=== PATIENT | male | born 1980 | race Caucasian/White ===

== ENCOUNTER 2021-12-24 10:35 | Emergency (ER) | payer OTHER ==
[~2021-12-24] VITALS: Ht 170.2 cm; Wt 88.6 kg
[2021-12-24] MEDS: HYDROCODONE/ACETAMINOPHEN 5-325 MG TABLET PO ONE ×4 (11:15→15:17)
[2021-12-24] MEDS ORDERED: LIDOCAINE 1% 10 ML VIAL SQ ONE (13:15)
[2021-12-24] MEDS ORDERED: CEPHALEXIN MONOHYDRATE 500 MG CAPSULE PO ONE (14:45)
[2021-12-24] MEDS ORDERED: PERTUSS(ACELL),DIPH,TET VAC/PF 0.5 ML SYRINGE IM. ONE (14:45)
[2021-12-24] MEDS ORDERED: IBUPROFEN 600 MG TABLET PO ONE (14:45)
[2021-12-24] MEDS ORDERED: BACITRACIN 0.9 GM PACKET OINTMENT TP ONE (14:45)
[2021-12-24] MEDS ORDERED: CEPH-558 PO (14:58)
[2021-12-24] MEDS ORDERED: IBUP-1554 PO (14:58)
[2021-12-24] MEDS ORDERED: HYDR-4723 PO (14:58)
[2021-12-24 15:30] VITALS: BP 136/95
== END 2021-12-24 16:40 | disposition home or self-care (01) ==
LOC: EMS 10:39
DX: S61.211A Laceration without foreign body of left index finger without damage to nail, initial encounter (principal); X50.1XXA Overexertion from prolonged static or awkward postures, initial encounter; Y93.89 Activity, other specified; Y92.89 Other specified places as the place of occurrence of the external cause; Y99.8 Other external cause status
CPT/HCPCS: 99284; 73130; 90715; 90471; 12001; J3490